=== PATIENT | female | born 1990 | race Caucasian/White ===

== ENCOUNTER 2021-08-09 23:55 | Emergency (ER) | payer BC, OTHER, SELFPAY ==
[2021-08-09 23:58] VITALS: BP 133/95; PULSE 118; RESP 18; TEMP 37.3; O2SAT 97; BMI 17.3
--- NOTE | 2021-08-10 00:11 | ECG_ITS ---
APPROVED REPORT Exam: Resting ECG HR:99 bpm ECG Measurements Heart Rate 99 AXES MT 158 P 84 QRSd 91 QRS 100 QT 340 T 84 QTc 397 Conclusion SINUS RHYTHM BORDERLINE RIGHT AXIS DEVIATION [QRS AXIS > 90] BORDERLINE ECG UNCONFIRMED REPORT Electronically signed by : Ashvin Valverde MD 08/11/2021 10:12:02
--- NOTE | 2021-08-10 00:22 | CT_ITS ---
PROCEDURE INFORMATION: Exam: CTA Chest With Contrast Exam date and time: 08/10/2021 1:08 AM Age: 30 years old Clinical indication: Shortness of breath; Additional info: Shortness of breath, high heart rate TECHNIQUE: Imaging protocol: Computed tomographic angiography of the chest with contrast. 3D rendering (Not supervised by radiologist): MIP and/or 3D reconstructed images were created by the technologist. Radiation optimization: All CT scans at this facility use at least one of these dose optimization techniques: automated exposure control; mA and/or kV adjustment per patient size (includes targeted exams where dose is matched to clinical indication); or iterative reconstruction. Contrast material: ISOVUE; Contrast volume: 70 ml; Contrast route: INTRAVENOUS (IV); COMPARISON: CR XR CHEST 2V 08/10/2021 12:56 AM FINDINGS: Pulmonary arteries: No acute pulmonary emboli. Aorta: Unremarkable. No aortic aneurysm. No aortic dissection. Lungs: Mild bilateral upper and lower lobe bronchial wall thickening, compatible with reactive airway disease or bronchitis. Minimal ground-glass opacities within the right upper lobe, likely areas of pneumonitis. Pleural spaces: Unremarkable. No pneumothorax. No pleural effusion. Heart: Unremarkable. No cardiomegaly. No pericardial effusion. Lymph nodes: Unremarkable. No enlarged lymph nodes. Bones/joints: Unremarkable. No acute fracture. Soft tissues: Unremarkable. IMPRESSION: 1. No acute pulmonary emboli. 2. Mild bilateral upper and lower lobe bronchial wall thickening, compatible with reactive airway disease or bronchitis. 3. Minimal ground-glass opacities within the right upper lobe, likely areas of pneumonitis.
--- NOTE | 2021-08-10 00:23 | XR_ITS ---
PROCEDURE INFORMATION: Exam: XR Chest Exam date and time: 08/10/2021 12:56 AM Age: 30 years old Clinical indication: Sternal or substernal pain; Additional info: Chest pain TECHNIQUE: Imaging protocol: XR of the chest. Views: 2 views. COMPARISON: No relevant prior studies available. FINDINGS: Lungs: Normal. Pleural spaces: Unremarkable. No pleural effusion. No pneumothorax. Heart/Mediastinum: Normal. Bones/joints: No acute abnormality. IMPRESSION: No acute findings.
[2021-08-10 00:30] VITALS: PULSE 105; PULSE 99
[2021-08-10 00:32] LABS: Basophils # 0.2 K/mm3 (0-0.2); Basophils % 3.3 % (0.1-2.0); Eosinophils # 0.1 K/mm3 (0.0-0.4); Hematocrit 42.2 % (37.0-47.0); Hemoglobin 13.2 g/dL (12.2-16.2); Lymphocytes # 1.7 K/mm3 (0.7-4.5); Lymphocytes % 35.6 % (10-50); Mean Corpuscular HGB Conc 31.2 g/dL (31.8-35.4); Mean Corpuscular Hemoglobin 32.6 pg (27.0-31.2); Mean Corpuscular Volume 104.8 fl (81-99); Mean Platelet Volume 8.3 fl (7.4-10.4); Monocytes # 0.4 K/mm3 (0.1-1.0); Monocytes % 9.3 % (1.7-9.3); Neutrophils # 2.4 K/mm3 (1.8-7.8); Neutrophils % 49.8 % (37.0-80.0); Platelet Count 217 K/mm3 (142-424); Red Blood Count 4.03 M/mm3 (4.20-5.40); Red Cell Distribution Width 15.6 % (11.5-17.5); White Blood Count 4.8 K/mm3 (4.8-10.8)
[2021-08-10 00:44] LABS: HCG Qualitative, Serum Negative (Negative)
[2021-08-10 00:51] LABS: Alanine Aminotransferase 15 U/L (12-78); Albumin Level 3.6 g/dl (3.5-5.0); Albumin/Globulin Ratio 1.4 (1.1-1.8); Alkaline Phosphatase 97 U/L (38-126); Aspartate Amino Transferase 25 U/L (14-36); Bilirubin,Total 0.3 mg/dl (0.2-1.3); Blood Urea Nitrogen 3 mg/dl (7-17); Calcium 8.5 mg/dl (8.4-10.2); Carbon Dioxide 31 mmol/L (22.0-30.0); Chloride 105 mmol/L (98-107); Creatinine Clearance Estimated 114 mL/min (50-200); Estimated Glomerular Filt Rate 144 ml/min (>60); GFR (African American) 174 ML/MIN (>60); Globulin 2.6 g/dL (1.3-3.2); Glucose 105 mg/dl (74-100); Lactic Acid 1.4 mmol/L (0.7-2.1); Sodium 139 mmol/L (136-145); Total Protein,Serum 6.2 g/dl (6.3-8.2)
[2021-08-10 00:56] LABS: C-Reactive Protein 12.6 mg/L (0-4)
--- NOTE | 2021-08-10 00:56 | PC.NURSE ---
MADE AWARE OF LOW K- 3.0
[2021-08-10 01:07] LABS: Troponin I < 0.01 ng/ml (0.00-0.034)
[2021-08-10 01:10] LABS: Procalcitonin 0.069 ng/mL (0.0-2.0)
--- NOTE | 2021-08-10 02:20 | HMH.EDURI ---
ED Disposition Clinical Impression: Bronchitis Disposition: Home, Self-Care Condition on Discharge: Good Instructions: DI for Acute Bronchitis Additional Instructions: fluids and use meds and see pcp for follow up Prescriptions: Benzonatate [Benzonatate 100mg cap] 100 mg PO TID #21 cap Transmission Status: Pending to [facility] levoFLOXacin [Levaquin 500mg tab] 500 mg PO DAILY #7 tab Transmission Status: Pending to [facility] predniSONE [Prednisone 20mg Tab] 20 mg PO BID #10 tab Transmission Status: Pending to [facility] Referrals: Provider,Referral, [Primary Care Provider] - - Critical Care Critical Care Time: No Attestation: On 08/09/21, the high probability of a clinically significant, sudden or life threatening deterioration of the following system(s) required my full and direct attention, intervention and personal management. The time I documented below is in addition to time spent performing reported procedures but includes the following listed in this critical care notation. Medical Decision Making - Medical Records Medical records reviewed: Yes: I reviewed the patient's medical records. - Mac Inquiry Pt receiving controlled substance: No Vital Signs: 08/09/21 23:58 08/10/21 00:30 Temperature 99.2 F Temperature Source Oral Pulse Rate 99 H Pulse Rate [Left Radial] 118 H Respiratory Rate 18 Blood Pressure [Right Arm] 133/95 H Blood Pressure Mean [Right Arm] 107 Blood Pressure Position [Right Arm] Sitting 02 Sat by Pulse Oximetry 97 Oxygen Delivery Method Room Air - Lab Data Lab results reviewed: Yes: I reviewed the patient's lab results. Lab Results 08/10/21 00:15: Serum HCG, Qual Negative 08/10/21 00:15: WBC 4.8, RBC 4.03 L, Hgb 13.2, Hct 42.2, MCV 104.8 H, MCH 32.6 H, MCHC 31.2 L, RDW 15.6, Plt Count 217, MPV 8.3, Neut % (Auto) 49.8, Lymph % (Auto) 35.6, Shoshone % (Auto) 9.3, Eos % (Auto) 2.0, Baso % (Auto) 3.3 H, Neut # (Auto) 2.4, Lymph # (Auto) 1.7, Shoshone # (Auto) 0.4, Eos # (Auto) 0.1, Baso # (Auto) 0.2 08/10/21 00:15: Sodium 139, Potassium 3.0 L, Chloride 105, Carbon Dioxide 31 H, Anion Gap 6.0, BUN 3 L, Creatinine 0.50 L, Estimated Creat Clear 114, Estimated GFR 144, Est GFR ( Amer) 174, Glucose 105 H, Calcium 8.5, Total Bilirubin 0.3, AST 25, ALT 15, Alkaline Phosphatase 97, Troponin I < 0.01, C-Reactive Protein 12.6 H, Total Protein 6.2 L, Albumin 3.6, Globulin 2.6, Albumin/Globulin Ratio 1.4, Procalcitonin 0.069 08/10/21 00:15: Lactate 1.4 Result diagrams: 08/10/21 00:15 08/10/21 00:15 Orders (Tests/Meds): ED MEDICATIONS Generic Name Dose Route Start Last Admin Trade Name Freq PRN Reason Stop Dose Admin Albuterol Sulfate 2 puffs 08/10/21 06:00 Albuterol-Hfa 90mcg/Puff Inhaler 8gm IH 09/09/21 05:59 Q6RT KAYLA Sodium Chloride 1,000 mls @ 999 mls/hr 08/10/21 00:30 08/10/21 00:31 Sod Chlor 0.9% 1000ml Bag IV 08/10/21 01:30 999 mls/hr .Q1H1M KAYLA Administration Discontinued Medications Generic Name Dose Route Start Last Admin Trade Name Freq PRN Reason Stop Dose Admin Albuterol/Ipratropium 3 ml 08/10/21 00:28 08/10/21 00:30 Ipratropium/Albuterol 3 Ml Neb IH 08/10/21 00:29 3 ml ONCE ONE Administration Iopamidol 70 ml 08/10/21 01:21 08/10/21 01:23 Iopamidol-370 (76%);100ml Bottle IV 08/10/21 01:22 70 ml ONCE ONE Administration Methylprednisolone Sodium Succinate 125 mg 08/10/21 00:29 08/10/21 00:31 Methylprednisolone Sod Succ 125mg Vial IV 08/10/21 00:30 125 mg ONCE ONE Administration Miscellaneous 1 unit 08/10/21 02:27 Aerochamber/Optihaler MC 08/10/21 02:28 ONCE ONE Sodium Chloride 50 ml 08/10/21 01:21 08/10/21 01:23 0.9 % Sodium Chloride 50 Ml Vial IV 08/10/21 01:22 50 ml ONCE ONE Administration Sodium Chloride 10 ml 08/10/21 01:21 08/10/21 01:23 Sodium Chloride 0.9% 10ml Syr (Rad Only) IV 08/10/21 01:22 10 ml ONCE ONE
[2021-08-10 02:35] LABS: Coronavirus 19, PCR Not Detected (NotDetected); Influenza A, PCR Not Detected (NotDetected); Influenza B, PCR Not Detected (NotDetected)
[2021-08-10 02:41] VITALS: BP 109/68; PULSE 95; RESP 18; TEMP 36.7; O2SAT 99
== END 2021-08-10 02:49 | disposition home or self-care (01) ==
PROVIDERS: Emergency Provider Emergency Medicine
DX: J06.9 Acute upper respiratory infection, unspecified (principal); J40 Bronchitis, not specified as acute or chronic; Z79.52 Long term (current) use of systemic steroids
CPT/HCPCS: 71046; 71275; 80053; 83605; 84145; 84484; 84703; 85025; 86140; 87040; 93005; 96361; 96365; 96374; 96375; 99285; C9803; Q9967; U0003; U0005

== ENCOUNTER 2021-08-11 01:03 | Emergency (ER) | payer BC, OTHER, SELFPAY ==
[2021-08-11] VITALS (19 sets, daily range): BP systolic 101–126; BP diastolic 58–77; PULSE 81–145; RESP 15–21; TEMP 36.9–37.1; O2SAT 87–100; BMI 17.3
--- NOTE | 2021-08-11 | ECG_ITS ---
APPROVED REPORT Exam: Resting ECG HR:124 bpm ECG Measurements Heart Rate 124 AXES MO 132 P 85 QRSd 89 QRS 92 QT 279 T 75 QTc 353 Conclusion SINUS TACHYCARDIA BORDERLINE RIGHT AXIS DEVIATION [QRS AXIS > 90] NONSPECIFIC T-WAVE ABNORMALITY ABNORMAL RHYTHM ECG UNCONFIRMED REPORT Electronically signed by : Ashvin Valverde MD 08/11/2021 10:10:54
--- NOTE | 2021-08-11 01:18 | XR_ITS ---
PROCEDURE INFORMATION: Exam: XR Chest Exam date and time: 08/11/2021 1:36 AM Age: 30 years old Clinical indication: Wheezing; Sternal or substernal pain; Additional info: Chest pain TECHNIQUE: Imaging protocol: XR of the chest. Views: 2 views. COMPARISON: CR XR CHEST 2V 08/10/2021 12:56 AM FINDINGS: Lungs: Mild pulmonary hyperaeration on the lateral view. Mild prominence of central bronchovascular markings. The possibility of asthmatic bronchitis is considered. No consolidation. There is no evidence of pulmonary vascular congestion. Pleural spaces: Unremarkable. No pleural effusion. No pneumothorax. Heart/Mediastinum: Unremarkable. No cardiomegaly. Bones/joints: Unremarkable. IMPRESSION: 1. Mild pulmonary hyperaeration , seen to best advantage on the lateral view. There is mild prominence of central bronchovascular markings within both perihilar regions. The possibility of asthmatic bronchitis is considered. 2. No evidence of alveolar consolidation or pulmonary vascular congestion.
[2021-08-11 01:24] LABS: Adenovirus,PCR Not Detected (NotDetected); Coronavirus 229E Not Detected (NotDetected); Coronavirus NL63 Not Detected (NotDetected); Coronavirus OC43 Not Detected (NotDetected); Coronovirus HKU1,PCR Not Detected (NotDetected); Human Metapneumovirus Not Detected (NotDetected); Influenza A, PCR Not Detected (NotDetected); Influenza AH1, 2009 Not Detected (NotDetected); Influenza AH1, PCR Not Detected (NotDetected); Influenza AH3,PCR Not Detected (NotDetected); Influenza B, PCR Not Detected (NotDetected); Parainfluenza 1, PCR Not Detected (NotDetected); Parainfluenza 2, PCR Not Detected (NotDetected); Rhinovirus/Enterovirus Not Detected (NotDetected)
[2021-08-11 01:25] LABS: Bordetella Pertussis Not Detected (NotDetected); Chlamydophila Pneumoniae, PCR Not Detected (NotDetected); Coronavirus 19, PCR Not Detected (NotDetected); Mycoplasma Pneumoniae, PCR Not Detected (NotDetected); Parainfluenza 4, PCR Not Detected (NotDetected); Respiratory Syncytial Virus Not Detected (NotDetected)
[2021-08-11 01:48] LABS: Urine Pregnancy, HCG Qual. Negative (Negative)
[2021-08-11 01:49] LABS: Basophils # 0.2 K/mm3 (0-0.2); Basophils % 1.3 % (0.1-2.0); Eosinophils % 0.2 % (0.1-12.0); Hematocrit 43.5 % (37.0-47.0); Hemoglobin 13.5 g/dL (12.2-16.2); Lymphocytes # 0.5 K/mm3 (0.7-4.5); Lymphocytes % 4.8 % (10-50); Mean Corpuscular HGB Conc 31.1 g/dL (31.8-35.4); Mean Corpuscular Hemoglobin 32.1 pg (27.0-31.2); Mean Corpuscular Volume 103.1 fl (81-99); Mean Platelet Volume 8.7 fl (7.4-10.4); Monocytes # 0.5 K/mm3 (0.1-1.0); Monocytes % 4.2 % (1.7-9.3); Neutrophils % 89.4 % (37.0-80.0); Platelet Count 230 K/mm3 (142-424); Red Blood Count 4.22 M/mm3 (4.20-5.40); Red Cell Distribution Width 15.8 % (11.5-17.5); White Blood Count 11.1 K/mm3 (4.8-10.8)
[2021-08-11 01:51] LABS: MANUAL DIFFERENTIAL MANUAL DIFFERENTIAL (MANUAL DIFF)
[2021-08-11 01:56] LABS: Alanine Aminotransferase 22 U/L (12-78); Albumin Level 3.8 g/dl (3.5-5.0); Albumin/Globulin Ratio 1.4 (1.1-1.8); Alkaline Phosphatase 82 U/L (38-126); Anion Gap 10.4 mEq/L (5-15); Aspartate Amino Transferase 26 U/L (14-36); Bilirubin,Total 0.3 mg/dl (0.2-1.3); Blood Urea Nitrogen 3 mg/dl (7-17); Calcium 8.9 mg/dl (8.4-10.2); Carbon Dioxide 27 mmol/L (22.0-30.0); Chloride 106 mmol/L (98-107); Creatinine Clearance Estimated 143 mL/min (50-200); Estimated Glomerular Filt Rate 186 ml/min (>60); GFR (African American) 225 ML/MIN (>60); Globulin 2.7 g/dL (1.3-3.2); Glucose 143 mg/dl (74-100); Potassium 3.4 mmoL/L (3.5-5.1); Sodium 140 mmol/L (136-145); Total Protein,Serum 6.5 g/dl (6.3-8.2)
[2021-08-11 02:01] LABS: C-Reactive Protein 19.8 mg/L (0-4)
[2021-08-11 02:15] LABS: Procalcitonin 0.073 ng/mL (0.0-2.0); Troponin I < 0.01 ng/ml (0.00-0.034)
[2021-08-11 02:17] LABS: Erythrocyte Sedimentation Rate 16 mm/hr (0-20)
--- NOTE | 2021-08-11 02:48 | PC.NURSE ---
Placed back on room air, sats maintaining 93-96%
--- NOTE | 2021-08-11 02:50 | HMH.EDSOB ---
ED Disposition Clinical Impression: Acute exacerbation of chronic obstructive airways disease, Viral upper respiratory tract infection with cough Disposition: Home, Self-Care Condition on Discharge: Good Instructions: DI for Chronic Obstructive Pulmonary Disease Additional Instructions: willsend meds for nebulizer and arrange home o2 Prescriptions: Ipratropium/Albuterol Sulfate [Duoneb 3mL neb] 3 ml IH Q6H 10 Days #40 ml Transmission Status: Pending to [facility] Budesonide/Formoterol Fumarate [Symbicort 80-4.5 Mcg Inhaler] 2 puffs IH BID #1 each Transmission Status: Pending to [facility] Referrals: Provider,Referral, [Primary Care Provider] - - Critical Care Critical Care Time: No Attestation: On , the high probability of a clinically significant, sudden or life threatening deterioration of the following system(s) required my full and direct attention, intervention and personal management. The time I documented below is in addition to time spent performing reported procedures but includes the following listed in this critical care notation. Medical Decision Making - Medical Records Medical records reviewed: Yes: I reviewed the patient's medical records. - Mac Inquiry Pt receiving controlled substance: No Vital Signs: 08/11/21 01:09 08/11/21 01:30 08/11/21 01:41 Temperature 98.8 F Temperature Source Oral Pulse Rate 125 H 140 H Pulse Rate [Left Radial] 124 H Respiratory Rate 20 Blood Pressure 126/76 119/77 Blood Pressure [Right Arm] 121/74 Blood Pressure Mean 95 86 Blood Pressure Mean [Right Arm] 89 Blood Pressure Source [Right Arm] Automatic Cuff Blood Pressure Position [Right Arm] Sitting 02 Sat by Pulse Oximetry 92 L 100 87 L Oxygen Delivery Method Room Air Nasal Cannula Aerosol Mask Room Air Oxygen Flow Rate (LPM) 08/11/21 01:53 08/11/21 01:54 08/11/21 02:00 Temperature Temperature Source Pulse Rate 81 83 129 H Pulse Rate [Left Radial] Respiratory Rate Blood Pressure 122/74 Blood Pressure [Right Arm] Blood Pressure Mean 86 Blood Pressure Mean [Right Arm] Blood Pressure Source [Right Arm] Blood Pressure Position [Right Arm] 02 Sat by Pulse Oximetry 98 Oxygen Delivery Method Nasal Cannula Oxygen Flow Rate (LPM) 2 08/11/21 02:30 08/11/21 03:00 08/11/21 03:30 Temperature Temperature Source Pulse Rate 145 H 109 H 119 H Pulse Rate [Left Radial] Respiratory Rate 21 Blood Pressure 108/71 L 103/58 L 118/63 Blood Pressure [Right Arm] Blood Pressure Mean 78 73 81 Blood Pressure Mean [Right Arm] Blood Pressure Source [Right Arm] Blood Pressure Position [Right Arm] 02 Sat by Pulse Oximetry 97 95 94 L Oxygen Delivery Method Nasal Cannula Room Air Room Air Oxygen Flow Rate (LPM) 2 08/11/21 04:00 08/11/21 04:30 08/11/21 05:00 Temperature Temperature Source Pulse Rate 117 H 102 H 105 H Pulse Rate [Left Radial] Respiratory Rate 19 18 15 Blood Pressure 120/76 101/74 L 102/69 L Blood Pressure [Right Arm] Blood Pressure Mean 88 80 76 Blood Pressure Mean [Right Arm] Blood Pressure Source [Right Arm] Blood Pressure Position [Right Arm] 02 Sat by Pulse Oximetry 94 L 93 L 94 L Oxygen Delivery Method Room Air Room Air Room Air Oxygen Flow Rate (LPM) 08/11/21 05:30 08/11/21 06:00 Temperature Temperature Source Pulse Rate 91 H 84 Pulse Rate [Left Radial] Respiratory Rate 19 18 Blood Pressure 108/68 L 108/69 L Blood Pressure [Right Arm] Blood Pressure Mean 78 74 Blood Pressure Mean [Right Arm] Blood Pressure Source [Right Arm] Blood Pressure Position [Right Arm] 02 Sat by Pulse Oximetry 95 95 Oxygen Delivery Method Room Air Room Air Oxygen Flow Rate (LPM) - Lab Data Lab results reviewed: Yes: I reviewed the patient's lab results. Lab Results 08/11/21 01:20: Chlamy pneumoniae PCR Not detected, Adenovirus (PCR) Not detected, B. pe
[2021-08-11 02:51] LABS: Lymphocytes % 6 % (10-50); Monocytes % 2 % (2-9); Neutrophils % 92 % (42-76); Total Cells Counted 100
[2021-08-11 02:52] LABS: Macrocytosis 1+; Platelet Estimate Normal; Stomatocytes 1+
[2021-08-11 02:57] LABS: Parainfluenza 3, PCR Detected (NotDetected)
--- NOTE | 2021-08-11 03:03 | PC.NURSE ---
MD would like to given Solumedrol 125mg IVP. Pt received a dose on previous visit and taking home prednisone 20mg BID, states it is ok to give.
[2021-08-11 04:02] LABS: Benzodiazepines Screen,Urine Negative ng/ml (<200)
[2021-08-11 04:03] LABS: Amphetamine/Metha Screen,Urine Negative ng/ml (<1000); Barbiturates Screen,Urine Negative ng/ml (<200)
[2021-08-11 04:04] LABS: Cannabinoid Screen,Urine Negative ng/ml (<50); Methadone Screen,Urine Negative ng/ml (<300)
[2021-08-11 04:05] LABS: Cocaine Screen,Urine Negative ng/ml (<300)
[2021-08-11 04:06] LABS: Opiate Screen,Urine Negative ng/ml (<300); Phencyclidine Screen,Urine Negative ng/ml (<25)
--- NOTE | 2021-08-11 07:37 | PC.NURSE ---
[facility] wrote outpt order for pt to have home oxygen set up at 2L per [place] and a nebulizer machine. Order form faxed to [email or web address] at this time.
--- NOTE | 2021-08-11 07:43 | PC.NURSE ---
RT at [facility] for neb treatment
--- NOTE | 2021-08-11 07:57 | PC.NURSE ---
pt updated on POC-waiting to hear back from [facility] r/t home O2 and neb treatment
--- NOTE | 2021-08-11 08:19 | PC.NURSE ---
patient ambulatory to restroom with assistance from family
--- NOTE | 2021-08-11 08:52 | PC.NURSE ---
have spoken with Janis at [facility], states they have received order and are working on it.
--- NOTE | 2021-08-11 09:05 | PC.NURSE ---
[facility] arrived with O2 for pt to take home.
== END 2021-08-11 09:43 | disposition home or self-care (01) ==
PROVIDERS: Emergency Provider Emergency Medicine
DX: J06.9 Acute upper respiratory infection, unspecified (principal); J44.9 Chronic obstructive pulmonary disease, unspecified
CPT/HCPCS: 71046; 80053; 80305; 81025; 84145; 84484; 85007; 85025; 85651; 86140; 87581; 87632; 87798; 93005; 96360; 96361; 96375; 99284; C9803; J2405; U0003; U0005